=== PATIENT | female | born 1955 | race Caucasian/White ===

== ENCOUNTER 2024-10-08 13:33 | Outpatient (CLI) | payer MEDICARE, OTHER | END 2024-10-08 13:34 | disposition home or self-care (01) | LOC: BICMAMMO 13:33 | PROVIDERS: ATTEND Physician Assistant | DX: Z78.0 Asymptomatic menopausal state (principal); M85.852 Other specified disorders of bone density and structure, left thigh | CPT/HCPCS: 77080 ==